=== PATIENT | male | born 1960 | race Caucasian/White ===

== ENCOUNTER 2021-08-27 01:34 | Day surgery (SDC) | payer OTHER, SELFPAY ==
[2021-08-15 15:43] VITALS: BMI 28.8
--- NOTE | 2021-08-24 13:13 | PM.HPGS ---
History of Present Illness History of Present Illness Consent: Risks, benefits, and alternatives have been discussed and questions answered. Patient agrees to proceed with procedure. Chief complaint: neoplasm screening, hx of colon polyps Narrative: Omer Pradhan is a 61 year old male Referred for colon cancer screening. He has had polyps removed in the past Review of Systems Review of Systems: All systems reviewed & are unremarkable except as noted in HPI and below PMFSH Past Medical History Medical History Hyperlipidemia Overweight Surgical History Surgical History H/O colonoscopy Social History Social History Smoking packs per day: 1 Smoking cigarettes per day: 20.0 Years smoked: 30 Smoking pack-years: 30.00 Smoking status: Current every day smoker Tobacco type: cigarettes Alcohol intake: current Alcohol use details: 1-2 beers/day Substance use: never Substance use type: does not use Living arrangements: with family Spiritual care concerns: No Meds Home Medications and Allergies Home Medications Medication Instructions Recorded Confirmed Type Adult Low Dose Aspirin 81 mg PO DAILY 08/15/21 08/15/21 History rosuvastatin 20 mg PO DAILY 08/15/21 08/15/21 History testosterone cypionate 200 mg IM WEEKLY 08/15/21 08/15/21 History Allergies Allergy/AdvReac Type Severity Reaction Status Date / Time No Known Allergies Allergy Verified 08/27/21 08:19 Exam Resp: Auscultation: clear to auscultation bilaterally Cardio: Rate: regular rate Rhythm: regular rhythm GI: GI Palp: Yes Soft to palpation and No Tenderness to palpation present (GI) Assessment and Plan Assessment and plan (1) Colon cancer screening: Code(s): Z12.11 - Encounter for screening for malignant neoplasm of colon Status: Acute Assessment and Plan: Colonoscopy with possible biopsy or polypectomy or cautery or injection of substances.
[2021-08-27 08:20] VITALS: BP 118/74; PULSE 87; RESP 20; TEMP 36.4; O2SAT 96; BMI 29.0
--- NOTE | 2021-08-27 08:29 | P.PNAN_ITS ---
Anes - Initial Pre Proc Eval Procedure: Operation Date: 08/27/21 09:30 Proposed Procedures p Screening Colonoscopy - Markus Aaron MD Date/Time: 08/27/21 08:29 Surgeon: Markus Aaron MD Pre Op Diagnosis: neoplasm screening, hx of colon polyps Patient Data Age: 61 Gender: M Height: 1.73 m Weight: 86.8 kg Last Vital Signs Temp 36.4 C 08/27/21 08:20 Pulse 87 08/27/21 08:20 Resp 20 08/27/21 08:20 BP 118/74 08/27/21 08:20 Pulse Ox 96 08/27/21 08:20 Allergies Allergy/AdvReac Type Severity Reaction Status Date / Time No Known Allergies Allergy Verified 08/27/21 08:19 Home Medications Medication Instructions Recorded Confirmed Type Adult Low Dose Aspirin 81 mg PO DAILY 08/15/21 08/15/21 History rosuvastatin 20 mg PO DAILY 08/15/21 08/15/21 History testosterone cypionate 200 mg IM WEEKLY 08/15/21 08/15/21 History Patient hx anesthesia problems: none Family hx anesthesia problems: none Results Review: All pre-operative results and documents have been reviewed as part of the pre-operative evaluation. [facility]LY [facility] Past Medical History Medical History (Updated 08/27/21 @ 08:29 by Raymond Frederick MD) Hyperlipidemia Overweight Surgical History Surgical History H/O colonoscopy Social History Social History Smoking packs per day: 1 Smoking cigarettes per day: 20.0 Years smoked: 30 Smoking pack-years: 30.00 Smoking status: Current every day smoker Tobacco type: cigarettes Alcohol intake: current Alcohol use details: 1-2 beers/day Substance use: never Substance use type: does not use Living arrangements: with family Spiritual care concerns: No Anes - Eval Final PreProcedure Day of Procedure 08/27/21 08:29 Patient weight: overweight Heart: regular rate and rhythm Lungs: clear to auscultation Airway: Mallampati scale class II Neurological: alert and oriented Last oral intake: >/= 8 hours ASA classification: II Emergent: no Anesthetic plan: proceed Anesthesia type and monitoring: general GIVS and standard monitoring Results Review: All pre-operative results and documents have been reviewed as part of the pre-operative evaluation. Informed Consent: The patient's anesthetic plan and its attendant risks and benefits were discussed with the patient/family/POA. Questions were solicited and answers provided to the satisfaction of the patient/family/POA.
[2021-08-27] MEDS: LACTATED RINGERS 1,000 ML 150 ML IV CONT (08:33)
[2021-08-27 09:04] VITALS: BP 95/55; PULSE 84; RESP 19; O2SAT 97
--- NOTE | 2021-08-27 09:05 | SUR.OPER ---
Dr. Aaron aware that second transverse colon polyp not retrieved.
[2021-08-27 09:14] VITALS: BP 114/80; PULSE 79; RESP 21; O2SAT 98
[2021-08-27 09:24] VITALS: BP 148/79; PULSE 80; RESP 21; O2SAT 98
== END 2021-08-27 09:38 | disposition home or self-care (01) ==
PROVIDERS: PCP Internal Medicine; Visit Provider Internal Medicine Gastroenterology
PROC: 0DJD8ZZ Inspection of Lower Intestinal Tract, Via Natural or Artificial Opening Endoscopic (ICD-10-PCS; CPT 45378; principal; 2021-08-27 09:30)
DX: Z12.11 Encounter for screening for malignant neoplasm of colon (principal); K57.30 Diverticulosis of large intestine without perforation or abscess without bleeding; K63.5 Polyp of colon; E78.5 Hyperlipidemia, unspecified; Z79.82 Long term (current) use of aspirin; F17.210 Nicotine dependence, cigarettes, uncomplicated
CPT/HCPCS: 45381; 45385; 88305; J2704; J7120

== ENCOUNTER 2024-12-13 10:29 | Outpatient (CLI) | payer OTHER, SELFPAY ==
--- NOTE | ~2024-12-13 | XR_ITS ---
EXAM: XR hand LT min 3V, XR hand RT min 3V DATE: 12/13/2024 11:00 HISTORY: G56.01 - Carpal tunnel syndrome, right upper limb . COMPARISON: None available. FINDINGS: Normal mineralization. No fracture or dislocation. No lytic or blastic lesion. Scattered c hanges typical of osteoarthritis, moderate at the left CMC joint, bilateral lunate and capitate artic ulations, bilateral second and third MCP joints, and the right radial carpal joint, with more mild de grees of osteoarthritis in multiple additional joints. Old left ulnar styloid fracture. Marked subcho ndral cyst formation in the bilateral carpal bones. Irregularity of the right scaphoid, with proximal sclerosis, and scapholunate widening. No erosion or periosteal change. Soft tissues within normal li mits. 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 Bilateral changes as can be seen with SLAC wrist, more pronounced on the right. 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 Reviewed, dictated and finalized at location K. 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 Bilateral changes as can be seen with SLAC wrist, more pronounced on the right. 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
--- OUTSIDE RECORDS SUMMARY | 2024-12-13 11:05 | XMS_ITS | CONTINUITY OF CARE DOCUMENT ---
Author Name lidia ricardoshirlene Address Unknown Organization [facility] Address [address] [place] [address] Phone [phone] Care Team Providers Care Blueprint Reader Name Role Phone Santana Amin MD Unavailable [phone] GEORGE GREEN MD Unavailable GEORGE GREEN MD Unavailable [phone] PROBLEMS Condition Status Date Provider Notes Tobacco abuse active Santana Amin MD Hyperlipidemia active Santana Amin MD Chest pain-type to be determined active Santana Amin MD Cardiology examination active Santana Tapia ENCOUNTERS Date Type Provider Location Encounter Diag nosis 3 - 3 In-person encounter Office Visit Santana Amin MD [facility] Office 6 - 6 In-person encounter Office Visit Santana Amin MD [facility] Cardiology examinationChest pain-type to be determinedHyperlipidemiaTobacco abuse VITAL SIGNS Date Observation Value Provider Body Mass Index (Ratio) 28.65 kg/m2 Hugo Guillen weight E&M 194 [lb_av] Radha [place]ana blood pressure, diastolic 69 mm[Hg] Mendez Boothe blood pressure, systolic 117 mm[Hg] Ingris Boothe blood pressure, cuff size regular Br bravo Boothe pulse rate 76 /min Radha [place] oxygen saturation, oximetry 96 % Radha Boothe height E&M 69 [in_i] Radha [place] Body Mass Index (Ratio) 28.35 kg/m2 Santana Amin MD blood pressure, diastolic 73 mm[Hg] Li nkLogic blood pressure, systolic 115 mm[Hg] Marisol kLogic blood pressure, diastolic 73 mm[Hg] Gregorio rubio Ruple blood pressure, systolic 115 mm[Hg] Anamaria la Ruple pulse rate 72 /min Karol Rusteffanie oxygen saturation, oximetry 96 % Karol Rusteffanie blood pressure, cuff size regular Gregorio ylterri Ruple weight E&M 192 [lb_av] Karol Ruple height E&M 69 [in_i] Karol Rusteffanie HISTORY OF MEDICATION USE Medication Status Instructions Dates Provider Indications Com ments rosuvastatin 20 mg tablet active Karol Rusteffanie INSURANCE PROVIDERS Payer name Policy type / Coverage type Rupert red constitution party ID [employer] insurance [facility] [id number] ADVANCE DIRECTIVES Name Date DISCUSSED - NO DECISION MADE TREATMENT PLAN Date Name Performer Cardiology Santana Amin MD Cardiology: H is updated medication list for this problem includes: Rosuvastatin 20 Mg Tablet (Rosuvastatin) Santana Amin MD Cardiology: H ad negative cardiac workup. Sx are related to eating spicy food. Recommended he see a GI specialist Santana Amin MD Cardiology:Cessation reviewed. Solange Amin MD Cardiology:I recomme nd pt undergo stress cardiolite given recent CP episodes and significant hx of HLD and smoking as risk factors for heart disease. Santana Amin MD Cardiology:Will requ est lab work from PCP. His updated medication list for this problem includes: Rosuvastatin 20 Mg Tablet (Rosuvastatin) Santana Amin MD Cardiology:check echo and stress test to evaluatio his CP Santana Amin MD Date Name Stress Exercise Card iolite Complete Echo HISTORY OF PROCEDURES Procedure Date Procedure Name Provider Procedure Notes S tatus EKG Santana Amin MD completed
== END 2024-12-13 10:30 | disposition home or self-care (01) ==
PROVIDERS: PCP Internal Medicine; Visit Provider Plastic Surgery
DX: G56.01 Carpal tunnel syndrome, right upper limb (principal)
CPT/HCPCS: 73130

== ENCOUNTER 2025-01-26 12:28 | Outpatient (CLI) | payer OTHER, SELFPAY ==
--- NOTE | 2025-01-26 14:00 | NEURO_ITS ---
Impression: # Complains of right hand numbness. ? # Moderate right Carpal Tunnel Syndrome. ? # No ulnar neuropathy. ? # Normal needle/EMG exam. Nerve Conduction Studies ?Stim Site NR Peak (ms) P-T Amp (?V) Site1 Site2 Delta-P (ms) Dist (cm) Jase (m/s) Right Median Anti Sensory (2-3nd Digit) Wrist ? 4.5 19.3 Wrist 2-3nd Digit 4.5 14.0 31 Wrist ? 5.4 42.6 Wrist 2-3nd Digit 4.5 14.0 31 Right Radial Anti Sensory (Base 1st Digit) Wrist ? 1.9 16.7 Wrist Base 1st Digit 1.9 0.0 Right Ulnar Anti Sensory (5th Digit) Wrist ? 2.3 1.6 Wrist 5th Digit 2.3 14.0 61 ?Stim Site NR Onset (ms) O-P Amp (mV) Site1 Site2 Delta-0 (ms) Dist (cm) Jase (m/s) Right Median Motor (Abd Poll Brev) Wrist ? 5.5 1.2 Elbow Wrist 2.6 27.0 104 Elbow ? 8.1 5.2 Right Ulnar Motor (Abd Dig Minimi) Wrist ? 1.9 6.0 A Elbow Wrist 5.0 28.0 56 A Elbow ? 6.9 5.4 B Elbow Wrist 3.5 19.0 54 B Elbow ? 5.4 2.1 Electromyography ?Side Muscle Nerve Root Ins Act Fibs Amp Dur Recrt Comment Right 1stDorInt Ulnar C8-T1 Nml Nml Nml Nml Nml Right Ext Indicis Radial (Post Int) C7-8 Nml Nml Nml Nml Nml Right Ext Digitorum Radial (Post Int) C7-8 Nml Nml Nml Nml Nml Right BrachioRad Radial C5-6 Nml Nml Nml Nml Nml Right PronatorTeres Median C6-7 Nml Nml Nml Nml Nml Right Abd Poll Brev Median C8-T1 Nml Nml Nml Nml Nml Right ABD Dig Min Ulnar C8-T1 Nml Nml Nml Nml Nml Right FlexPolLong Median (Ant Int) C7-8 Nml Nml Nml Nml Nml Right Abd Poll Long Radial (Post Int) C7-8 Nml Nml Nml Nml Nml
== END 2025-01-26 12:29 | disposition home or self-care (01) ==
PROVIDERS: PCP Internal Medicine; Visit Provider Plastic Surgery
DX: G56.01 Carpal tunnel syndrome, right upper limb (principal)
CPT/HCPCS: 95886; 95909

== ENCOUNTER 2025-03-04 02:37 | Day surgery (SDC) | payer OTHER, SELFPAY ==
[2025-02-18 15:54] VITALS: BMI 28.8
--- OUTSIDE RECORDS SUMMARY | 2025-03-04 02:47 | XMS_ITS | Patient Health Record ---
Author Organization [facility] Address [address] [facility] [address] [facility] [address] [place] [address] Support Name Relationship Address Phone JEFF KENT Guarantor Unknown [phone] Reason For Referral No Information Plan Of Treatment No Information
--- OUTSIDE RECORDS SUMMARY | 2025-03-04 02:47 | XMS_ITS | Continuity of Care Document ---
Author Organization [facility] Address [address] [place] [address] [address] [place] [address] Phone Care Team Providers Care Auto Transmission Mechanic Name Role Phone Pacheco OD, Wes Unavailable Unavailable Advance Directives Directive Yes / No Effective Date File Name No Information Encounters Encounter Description Practice Location Reason(s) For Visit Diagnoses Date Provider Providers Copied on Encounter [facility], [address], [place], [place], [address], [place] tel:[phone] [facility] [place] No Information November-2 9-200 2 Pacheco OD Wes. [address] [facility] [place] , [address], [place], [address], [place]. tel:[phone] Family History Family Member Type Diagnosis Age At Onset No Information Payers Payer name Insurance type Covered green party ID Authoriza tion(s) Precoat [facility] [id number] Social History Type Description Quantity Date Captured [...]
[2025-03-04 07:40] VITALS: BP 105/71; PULSE 68; RESP 16; TEMP 36.3; O2SAT 97; BMI 29.8
[2025-03-04] MEDS: LACTATED RINGERS 1,000 ML 150 ML IV CONT (07:57)
--- NOTE | 2025-03-04 08:03 | WPDANESEPPF ---
Anes - Initial Pre Proc Eval Procedure: Operation Date: 03/04/25 09:00 Proposed Procedures p Screening Colonoscopy - Jovany Lee MD Date/Time: 03/04/25 08:03 Surgeon: Jovany Lee MD Pre Op Diagnosis: Neoplasm screening Patient Data Age: 64 Gender: M Height: 1.73 m Weight: 89.1 kg Last Vital Signs Temp 36.3 C L 03/04/25 07:40 Pulse 68 03/04/25 07:40 Resp 16 03/04/25 07:40 BP 105/71 03/04/25 07:40 Pulse Ox 97 03/04/25 07:40 O2 Del Method Room Air 03/04/25 07:40 Allergies Allergy/AdvReac Type Severity Reaction Status Date / Time No Known Allergies Allergy Verified 03/04/25 07:48 Home Medications ?Medication ?Instructions ?Recorded ?Confirmed ?Type Adult Low Dose Aspirin 81 mg PO DAILY 08/15/21 03/04/25 History rosuvastatin 20 mg tablet 20 mg PO DAILY 08/15/21 03/04/25 History testosterone cypionate 200 mg/mL 200 mg IM MONTHLY 08/15/21 03/04/25 History intramuscular oil tadalafil 20 mg tablet 20 mg PO PRN PRN sexual activity 02/18/25 02/18/25 History Patient hx anesthesia problems: none Family hx anesthesia problems: none Results Review: All pre-operative results and documents have been reviewed as part of the pre-operative evaluation. [facility] Past Medical History Medical History Hyperlipidemia Overweight Surgical History Surgical History H/O colonoscopy Social History Social History Smoking packs per day: 1 Smoking cigarettes per day: 20.0 Years smoked: 30 Smoking pack-years: 30.00 Smoking status: Current every day smoker Tobacco type: cigarettes Alcohol intake: current Alcohol use details: 1-2 beers/day Substance use: never Substance use type: does not use Living arrangements: with family Spiritual care concerns: No Anes - Eval Final PreProcedure Day of Procedure 03/04/25 08:03 Patient weight: overweight Heart: regular rate and rhythm Lungs: clear to auscultation Airway: Mallampati scale class II Neurological: alert and oriented Last oral intake: >/= 8 hours ASA classification: II Emergent: no Anesthetic plan: proceed Anesthesia type and monitoring: general GIVS and standard monitoring Results Review: All pre-operative results and documents have been reviewed as part of the pre-operative evaluation. Informed Consent: The patient's anesthetic plan and its attendant risks and benefits were discussed with the patient/family/POA. Questions were solicited and answers provided to the satisfaction of the patient/family/POA.
--- NOTE | 2025-03-04 08:16 | PM.IMHP ---
H&P: HPI History of Present Illness Date/Time: 03/04/25 08:16 Chief Complaint: History of colon polyps Narrative: The patient has a history of colonic polyps, the last colonoscopy was approximately 6 years ago. Review of Systems Review of Systems: All systems reviewed & are unremarkable except as noted in HPI and below PMFSH Past Medical History Medical History Hyperlipidemia Overweight Surgical History Surgical History H/O colonoscopy Social History Social History Smoking packs per day: 1 Smoking cigarettes per day: 20.0 Years smoked: 30 Smoking pack-years: 30.00 Smoking status: Current every day smoker Tobacco type: cigarettes Alcohol intake: current Alcohol use details: 1-2 beers/day Substance use: never Substance use type: does not use Living arrangements: with family Spiritual care concerns: No Meds Home Medications and Allergies Home Medications ?Medication ?Instructions ?Recorded ?Confirmed ?Type Adult Low Dose Aspirin 81 mg PO DAILY 08/15/21 03/04/25 History rosuvastatin 20 mg tablet 20 mg PO DAILY 08/15/21 03/04/25 History testosterone cypionate 200 mg/mL 200 mg IM MONTHLY 08/15/21 03/04/25 History intramuscular oil tadalafil 20 mg tablet 20 mg PO PRN PRN sexual activity 02/18/25 02/18/25 History Allergies Allergy/AdvReac Type Severity Reaction Status Date / Time No Known Allergies Allergy Verified 03/04/25 07:48 Vital Signs Vital Signs - 24 hr 03/04/25 07:40 Temperature 97.3 F L Pulse Rate 68 Respiratory Rate 16 Blood Pressure 105/71 Pulse Oximetry 97 Oxygen Delivery Room Air Exam Const: General: cooperative and healthy appearing Resp: Effort & Inspection: normal respiratory effort and able to speak in complete sentences Auscultation: clear to auscultation bilaterally Cardio: Rate: regular rate Rhythm: regular rhythm GI: Inspection: normal to inspection GI Palp: No No hepatosplenomegaly present Auscultation: normal bowel sounds Rectal Exam: deferred Skin: General skin exam: normal color Psych: Appearance: grossly normal Mental Status: mental status grossly normal Assessment and Plan Assessment and plan (1) History of colonic polyps: Code(s): Z86.0100 - Personal history of colon polyps, unspecified Status: Acute Assessment and Plan: The patient is deemed a good candidate for the procedure. Consent signed. Will proceed.
[2025-03-04 09:05] VITALS: BP 84/43; PULSE 70; RESP 14; O2SAT 94
--- NOTE | 2025-03-04 09:05 | S_PTH ---
PATIENT: Omer Pradhan LOC: TEZ U#:[id number] AGE/SX: 64/M ROOM: RE03/04/[address]: Jovany Lee MD : 1960 BED: DIS: 03/04/2025 SPEC #: [id number] RECD: 03/04/25 10:23 STATUS: RADHA REGregg #: [id number] BRANT: 03/04/25 09:[address]: Jovany Lee DEPT: [facility] Surgical RECD BY: Abbi Rudd ENTERED: 03/04/25 10:24 SP TYPE: Surgical OTHR DR: Tray KeitaMD Tissues: A - Colon Polypectomy B - Colon Polypectomy Procedures: Hematoxylin and Eosin Stain Gross and Microscopic Level 4
[2025-03-04 09:15] VITALS: BP 87/46; PULSE 63; RESP 17; O2SAT 96
[2025-03-04 09:25] VITALS: BP 90/60; PULSE 60; RESP 17; O2SAT 97
== END 2025-03-04 09:40 | disposition home or self-care (01) ==
PROVIDERS: PCP Internal Medicine; Referring Provider Internal Medicine Gastroenterology; Visit Provider Internal Medicine Gastroenterology
PROC: 0DJD8ZZ Inspection of Lower Intestinal Tract, Via Natural or Artificial Opening Endoscopic (ICD-10-PCS; CPT 45378; principal; 2025-03-04 09:00)
DX: Z12.11 Encounter for screening for malignant neoplasm of colon (principal); K63.5 Polyp of colon; K64.8 Other hemorrhoids; K57.30 Diverticulosis of large intestine without perforation or abscess without bleeding; E78.5 Hyperlipidemia, unspecified; F17.210 Nicotine dependence, cigarettes, uncomplicated
CPT/HCPCS: 45385; 88305; J2704; J7120

== ENCOUNTER 2025-04-28 07:37 | Day surgery (SDC) | payer OTHER, SELFPAY ==
--- OUTSIDE RECORDS SUMMARY | 2001-12-23 04:00 | XMS_ITS | Continuity of Care Document ---
Author Organization [facility] Address [address] [place] [address] [address] [place] [address] Phone Care Team Providers Care Bar Machine Operator Name Role Phone Pacheco OD, Wes Unavailable Unavailable Advance Directives Directive Yes / No Effective Date File Name No Information Encounters Encounter Description Practice Location Reason(s) For Visit Diagnoses Date Provider Providers Copied on Encounter [facility], [address], [place], [place], [id number], [place] tel:[phone] [facility] [place] No Information November- 9-200 2 Pacheco OD Wes. [address] [facility] [place] , [address], [place], [address], [place]. tel:[phone] Family History Family Member Type Diagnosis Age At Onset No Information Payers Payer name Insurance type Covered republican ID Authoriza tienrique(s) Precoat [facility] [id number] Social History Type Description Quantity Date Captured Comments Sex Male Smoking Status No Information Chief Complaint And Reason For Visit No Information Reason For Referral Reason For Referral No Information History Of Present Illness Encounter Date Complaint History Of Prese nt Illness No Information Functional Status Date Functional Assessmen t No Information Instructions Date Instruction Additional Infor mation No Information Assessments Type Assessment Date No Information Patient Care Teams Name Effective Dates (start - stop) Status Members No Information
[2025-04-19 11:45] VITALS: BMI 29.9
--- NOTE | 2025-04-28 06:54 | PM.HPGS ---
History of Present Illness History of Present Illness Chief complaint: RT Carpal Tunnel Syndrome,Ganglion Cyst,Wrist Pain Narrative: Patient seen and examined in pre-operative holding area. No interval change in medical history or symptoms. Patient recalls previous discussion of benefits and alternatives to procedure. Continues to desire to proceed with right endoscopic possible open carpal tunnel release, right dorsal wrist mass excision and right posterior interosseous nerve neurectomy. Reviewed procedure, post-op expectations and risks including but not limited to bleeding, infection, injury to tendon/nerve/vessel, decreased hand function, stiffness, RSD, no change or worsening of symptoms. I discussed the possible use of assistants and their participation in the case. Patient stated understanding and signed the consent form wishing to proceed. Review of Systems Review of Systems: All systems reviewed & are unremarkable except as noted in HPI and below PMFSH Past Medical History Medical History Hyperlipidemia Overweight Surgical History Surgical History H/O colonoscopy Social History Social History Smoking packs per day: 1 Smoking cigarettes per day: 20.0 Years smoked: 30 Smoking pack-years: 30.00 Smoking status: Current every day smoker Tobacco type: cigarettes Second hand tobacco smoke exposure: Yes Alcohol intake: current Alcohol use details: 1-2 beers/day Substance use: never Substance use type: does not use Living arrangements: with family Spiritual care concerns: No Meds Home Medications and Allergies Home Medications ?Medication ?Instructions ?Recorded ?Confirmed ?Type Adult Low Dose Aspirin 81 mg PO DAILY 08/15/21 04/28/25 History rosuvastatin 20 mg tablet 20 mg PO DAILY 08/15/21 04/28/25 History testosterone cypionate 200 mg/mL 200 mg IM MONTHLY 08/15/21 04/28/25 History intramuscular oil tadalafil 20 mg tablet 20 mg PO PRN PRN sexual activity 02/18/25 04/28/25 History tramadol 50 mg tablet 50 mg PO Q6H PRN pain #12 tabs 04/28/25 Rx Allergies Allergy/AdvReac Type Severity Reaction Status Date / Time No Known Allergies Allergy Verified 04/28/25 07:56 Exam Narrative: unchanged Assessment and Plan Assessment and plan (1) Carpal tunnel syndrome of right wrist: Code(s): G56.01 - Carpal tunnel syndrome, right upper limb Status: Acute Assessment and Plan: cont as above (2) Right wrist pain: Code(s): M25.531 - Pain in right wrist Status: Acute (3) Ganglion, tendon sheath: Code(s): M67.40 - Ganglion, unspecified site Status: Acute
--- NOTE | 2025-04-28 06:55 | P.OP_ITS ---
Procedure Note - Detailed Date of Procedure 04/28/25 Pre-op Diagnosis RT Carpal Tunnel Syndrome,dorsal wrist mass, right Wrist Pain Post-op Diagnosis Same Procedure Performed right ectr, right dorsal wrist extensor tenosynovectomy and right pin neurectomy Surgeon Tangela Quijano MD Ice Delivery Driver Dayanna Blanco PA-C Anesthesia MAC Description of Procedure INFORMED CONSENT: The patient was seen and examined and marked in the pre-op area.? The patient signed the consent form. PROCEDURE IN DETAIL:The patient taken back to OR on the stretcher in supine position. Time out performed with anesthesia, surgeon and staff agreeing on patient's name site and surgery to be performed SCDs were placed on the lower extremities and inflated. A tourniquet was placed on {right} upper extremity and antibiotics given IV After anesthesia administered sedation I injected {10}cc 1%lido with epi and 0.5% marcaine plain at the operative sites The?{right upper extremity}?was prepped and draped in sterile fashion the??{right upper extremity} was? exsanguinated with Esmarch bandage proximal to mass and tourniquet inflated to 250mmHg I made a transverse incision in the {right} volar distal wrist crease through skin and dermis with 15 blade scalpel.? Littler scissors spread down to antebrachial fascia. A small incision was made in antebrachial fascia allowing access to Carpal tunnel. I proceeded with sequential dilation staying in line with the ring finger and hugging the hook of the hamate.? I then used the synovial elevator to free any adhesions from the underside of the transverse carpal ligament. Next I was able to insert the Microaire endoscopic carpal tunnel device with direct visualization of the transverse fibers on the monitor and proceeded with complete segmental retrograde release of the ligament in its entirety.? I irrigated with normal saline and closed with 4-0 monocryl for dermis and subcuticular closure. Next I took my attention to the dorsum of the right wrist where I made a hockey style incision over the 4th extensor compartment proximally going radially across the wrist flexion crease through skin and dermis with 15 blade scalpel. Littler scissors were used to spread through subcutaneous tissue and elevate these skin flaps. The dorsal branch of the radial sensory nerve was not identified in the plane of dissection and was likely capped radially. An incision was made in the extensor retinaculum allowing exposure to the 3rd and 4th extensor compartments. Here I identified notable synovitis coming off of the tendons of the 4th extensor compartment and extensor pollicis longus. I proceeded with synovectomy of both these compartments. This was done with 15 blade scalpel and bipolar cautery. Next I proceeded with retracting the 4th extensor compartment tendons ulnarly and identified the posterior interosseous nerve running along the radial aspect of the 4th extensor compartment. 1.5 cm of this nerve was transected with traction and bipolar cautery and resected over the dorsal wrist capsule. I irrigated with normal saline. 3-0 Vicryl was used to reinforce the dorsal wrist capsule at site of PI in resection. The extensor retinaculum was repaired with 3-0 Vicryl. 3-0 Vicryl was used for dermis. 4-0 Monocryl was used for subcuticular closure. There was no impingement on the finger range of motion noted. A dressing of Dermabond, 4x4, kristy, and a volar splint was applied for patient safety, security, and comfort and secured with an félix bandage after the tourniquet was let down noting the hand was warm and well perfused. The patient was then awaken from anesthesia and transferred to the recovery room in stable condition.? Complications - none EBL- 0cc Disposition - home in stable condition Dayanna Blanco PA-C was essential for positioning, retraction, closure and dressing placement [facility] Billing Surgery - Charge Forward: Surgery Billing ([id number], same for dayanna taveras )
--- OUTSIDE RECORDS SUMMARY | 2025-04-28 07:52 | XMS_ITS | Clinical Summary ---
Author Organization [facility] Address [address] [place] [address] Care Team Providers Care Documentation Nurse Name Role Phone Tray Keita MD Primary Care Provider [phone] Source Comments [facility],non-owned Affiliates and Associated Physician Practices is amultiple site organization consisting of ambulatory clinics and hospital sitesin [place], [place], [place] and [place]. This disclosure is being madepursuant to the Care Everywhere program and may not contain all information available regarding this patient. 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[employer] Gender Identity Not on file Sexual Orientation Not on file Plan of Treatment Upcoming Encounters Date Type Department Care Team (Late st Contact Info) Description 05/03/2025 10:00 AM CDT Office Visit [facility] [address] [facility], [address] [address] Anju Griffin, PAAjC [address] [address] Health Maintenance Due Date Last Done Comments COLOGUARD (AGES 45-75) - COL ON CA SCREENING 1960 COLON MONITORING 1960 COLONOSCOPY - COLON CA SCREENING 1960 CT COLONOGRAPHY - COLON CA SCREENING 1960 Colorectal Cancer Screening 1960 FIT - COLON CA SCREENING 1960 FLEX SIG - COLON CA SCREENING 1960 LIPID TESTING 1960 HIV SCREENING 1975 HEPATITIS C SCREENING 03/30/1978 DTAP/TDAP/TD VACCINES (1 - Tdap) 1979 PNEUMOCOCCAL VACCINE 50+ (1 of 1 - PCV) 2010 ZOSTER VACCINE (1 of 2) 2010 DEPRESSION SCREENING 07/28/2024 COVID-19 VACCINE (1 - 2023-2 5 season) 2025 INFLUENZA VACCINE (#1) 2025 Respiratory Syncytial Virus (RSV) Vaccine Pt: or over 60 yrs (1 - 1-dose 75+ series) 2035 HEPATITIS B VACCINE Aged Out No longe r eligible based on patient's age to complete this topic HIB VACCINE Aged Out No longer eligi ble based on patient's age to complete this topic HPV VACCINE Aged Out No longer eligi ble based on patient's age to complete this topic MENINGOCOCCAL (Group B) VACC INE SHARED DECISION-MAKING Aged Out No longer eligibl e based on patient's age to complete this topic MENINGOCOCCAL GROUPS A/C/Y/W VACCINE Aged Out No longer eligible b ased on patient's age to complete this topic Insurance [facility] SELF PAY NO INSURANCE Member Subscriber Plan / Payer (Ef fective for All Dates) Name:Omer Pradhan Member ID:Not on file Relation to Subscriber:Not on file Name:OMER PRADHAN Subscriber ID:Not on file (Home) Address: [address] [place] [id number] Payer ID:Not on file Group ID:Not on file Type:Self Pay Address: [place], [place] Care Teams Documentation Nurse Relationship Specialty Start Date End Date Tray Keita MD [address] [place] [address] [address] [place] [address] PCP - General 08/29/21
--- OUTSIDE RECORDS SUMMARY | 2025-04-28 07:52 | XMS_ITS | Patient Health Record ---
Author Organization [facility] Address [address] [facility] [address] [place] [address] Support Name Relationship Address Phone JEFF KENT Guarantor Unknown [phone] Reason For Referral No Information Plan Of Treatment No Information
[2025-04-28 08:00] VITALS: BMI 30.1
[2025-04-28 08:07] VITALS: BP 112/74; PULSE 61; RESP 18; TEMP 36.6; O2SAT 99
--- NOTE | 2025-04-28 08:19 | WPDANESEPPF ---
Anes - Initial Pre Proc Eval Procedure: Operation Date: 04/28/25 09:15 Proposed Procedures p Right Endoscopic Carpal Tunnel Release, Possible Open Carpal Tunnel Release - Tangela Quijano MD s Excision Ganglion Cyst Right Dorsal Wrist vs. Tenosynovectomy - Tangela Quijano MD s Posterior Interosseous Nerve Neurectomy Right Wrist - Tangela Quijano MD Date/Time: 04/28/25 08:19 Surgeon: Tangela Quijano MD Pre Op Diagnosis: RT Carpal Tunnel Syndrome,Ganglion Cyst,Wrist Pain Patient Data Age: 65 Gender: M Height: 1.73 m Weight: 89.8 kg Last Vital Signs Temp 97.9 F 04/28/25 08:07 Pulse 61 04/28/25 08:07 Resp 18 04/28/25 08:07 BP 112/74 04/28/25 08:07 Pulse Ox 99 04/28/25 08:07 O2 Del Method Room Air 04/28/25 08:07 Allergies Allergy/AdvReac Type Severity Reaction Status Date / Time No Known Allergies Allergy Verified 04/28/25 07:56 Home Medications ?Medication ?Instructions ?Recorded ?Confirmed ?Type Adult Low Dose Aspirin 81 mg PO DAILY 08/15/21 04/28/25 History rosuvastatin 20 mg tablet 20 mg PO DAILY 08/15/21 04/28/25 History testosterone cypionate 200 mg/mL 200 mg IM MONTHLY 08/15/21 04/28/25 History intramuscular oil tadalafil 20 mg tablet 20 mg PO PRN PRN sexual activity 02/18/25 04/28/25 History tramadol 50 mg tablet 50 mg PO Q6H PRN pain #12 tabs 04/28/25 Rx Patient hx anesthesia problems: none Family hx anesthesia problems: none Results Review: All pre-operative results and documents have been reviewed as part of the pre-operative evaluation. [facility] Past Medical History Medical History Hyperlipidemia Overweight Surgical History Surgical History H/O colonoscopy Social History Social History Smoking packs per day: 1 Smoking cigarettes per day: 20.0 Years smoked: 30 Smoking pack-years: 30.00 Smoking status: Current every day smoker Tobacco type: cigarettes Second hand tobacco smoke exposure: Yes Alcohol intake: current Alcohol use details: 1-2 beers/day Substance use: never Substance use type: does not use Living arrangements: with family Spiritual care concerns: No Anes - Eval Final PreProcedure Day of Procedure 04/28/25 08:19 Heart: regular rate and rhythm Lungs: clear to auscultation Airway: Mallampati scale class IV Neurological: alert and oriented Last oral intake: >/= 8 hours ASA classification: II Anesthetic plan: proceed Anesthesia type and monitoring: monitored anesthesia care Results Review: All pre-operative results and documents have been reviewed as part of the pre-operative evaluation. Informed Consent: The patient's anesthetic plan and its attendant risks and benefits were discussed with the patient/family/POA. Questions were solicited and answers provided to the satisfaction of the patient/family/POA.
[2025-04-28] MEDS: LACTATED RINGERS 1,000 ML 30 ML IV CONT (08:28)
[2025-04-28] MEDS: ACETAMINOPHEN 500 MG TABLET 1000 MG PO (08:28)
[2025-04-28] MEDS: ceFAZolin SODIUM 2 GM/20 ML SW SYRINGE IV PUSH (08:58)
--- NOTE | 2025-04-28 09:42 | WPDANESPN ---
Anes - Prog Note Post-Op Date/Time: 04/28/25 09:42 Vital Signs: Last Vital Signs Temp 97.9 F 04/28/25 08:07 Pulse 61 04/28/25 08:07 Resp 18 04/28/25 08:07 BP 112/74 04/28/25 08:07 Pulse Ox 99 04/28/25 08:07 O2 Del Method Room Air 04/28/25 08:07 Pain Score (VAS): no Patient Feedback: Patient satisfied with anesthetic care.
[2025-04-28 09:48] VITALS: BP 100/61; PULSE 70; RESP 15; O2SAT 99
[2025-04-28] MEDS: LIDO 1%/EPINEPHRINE 1:100,000 20 ML VIAL 10 ML INFILTRATE (09:48)
[2025-04-28] MEDS: BUPivacaine HCL 0.5% 10 ML AMP INFILTRATE (09:49)
[2025-04-28 09:58] VITALS: BP 90/63; PULSE 65; RESP 16; O2SAT 98
[2025-04-28 10:08] VITALS: BP 101/70; PULSE 62; RESP 16; O2SAT 97
== END 2025-04-28 10:21 | disposition home or self-care (01) ==
LOC: ASC 07:49
PROVIDERS: PCP Internal Medicine; Visit Provider Plastic Surgery
PROC: 01N54ZZ Release Median Nerve, Percutaneous Endoscopic Approach (ICD-10-PCS; CPT 29848; principal; 2025-04-28 09:15)
PROC: (CPT 29848; 2025-04-28 09:15)
PROC: (CPT 29848; 2025-04-28 09:15)
DX: G56.01 Carpal tunnel syndrome, right upper limb (principal); M67.431 Ganglion, right wrist
CPT/HCPCS: 29848; 64772; 25118 ×2

== ENCOUNTER 2025-04-28 10:44 | Outpatient (NON) | payer OTHER, SELFPAY ==
--- OUTSIDE RECORDS SUMMARY | 2001-12-23 04:00 | XMS_ITS | Continuity of Care Document ---
Author Organization [facility] Address [id number] [place] [address] [address] [place] [address] Phone Care Team Providers Care Community Dietitian Name Role Phone Pacheco OD, Wes Unavailable Unavailable Advance Directives Directive Yes / No Effective Date File Name No Information Encounters Encounter Description Practice Location Reason(s) For Visit Diagnoses Date Provider Providers Copied on Encounter [facility], [address], [place], [place], [address], [place] tel:[phone] [facility] [place] No Information November- 9-200 2 Pacheco OD Wes. [address] [facility] [place] , [address], [place], [address], [place]. tel:[phone] Family History Family Member Type Diagnosis Age At Onset No Information Payers Payer name Insurance type Covered republican ID Authoriza tion(s) Precoat [facility] [id number] Social History Type Description Quantity Date Captured [...]
--- NOTE | 2025-04-28 | S_PTH ---
PATIENT: Omer Pradhan LOC: ANHLAB #:[id number] AGE/SX: 65/M ROOM: RE04/28/[address]: Tangela Quijano MD : 1960 BED: DIS: 04/28/2025 SPEC #: [id number] RECD: 04/29/25 11:00 STATUS: RADHA REGregg #: [id number] BRANT: 04/28/25 00:[address]: Tangela Quijano DEPT: [facility] Surgical RECD BY: Abbi Rudd ENTERED: 04/29/25 11:03 SP TYPE: Surgical OTHR DR: Tray Keita, Tissues: A - Cyst B - Soft Tissue Procedures: Hematoxylin and Eosin Stain Gross and Microscopic Level 3 Gross and Microscopic Level 4
--- OUTSIDE RECORDS SUMMARY | 2025-04-29 10:52 | XMS_ITS | Patient Health Record ---
Author Organization [facility] Address [address] [facility] [address] [place] [address] Support Name Relationship Address Phone JEFF KENT Guarantor Unknown [phone] Reason For Referral No Information Plan Of Treatment No Information
--- OUTSIDE RECORDS SUMMARY | 2025-04-29 10:52 | XMS_ITS | Clinical Summary ---
Author Organization [facility] Address [address] [place] [address] Care Team Providers Care Steward/Stewardess Bath Name Role Phone Tray Keita MD Primary Care Provider [phone] Source Comments [facility],non-owned Affiliates and Associated Physician Practices is amultiple site organization consisting of ambulatory clinics and hospital sitesin [place], [place], [place] and [place]. This disclosure is being madepursuant to the Care Everywhere program and may not contain all information available regarding this patient. Last updated 18.[facility] Social History Tobacco Use Types Packs/Day Years Used Date Smoking Tobacco: Never Assessed Sex and Gender Information Value Date Recorded Sex Assigned at Not on file Legal Sex Male 7:52 AM [employer] Gender Identity Not on file Sexual Orientation Not on file Plan of Treatment Upcoming Encounters Date Type Department Care Team (Late st Contact Info) Description 05/03/2025 10:00 AM CDT Office Visit [facility] [address] [facility], [address] [address] Anju Griffin, PAAjC [address] [address] Health Maintenance Due Date Last [...] patient's age to complete this topic Insurance [facility] SELF PAY NO INSURANCE Member Subscriber Plan / Payer (Ef fective for All Dates) Name:Omer Pradhan Member ID:Not on file Relation to Subscriber:Not on file Name:OMER PRADHAN Subscriber ID:Not on file (Home) Address: [address] [place] [id number] Payer ID:Not on file Group ID:Not on file Type:Self Pay Address: [place], [place] Care Teams Steward/Stewardess Bath Relationship Specialty Start Date End Date Tray Keita MD [address] [place] [address] [address] [place] [address] PCP - General 08/29/21
== END 2025-04-28 10:45 | disposition home or self-care (01) ==
LOC: ANHLAB 04-29 10:45
PROVIDERS: PCP Internal Medicine; Visit Provider Plastic Surgery
DX: M67.431 Ganglion, right wrist (principal)
CPT/HCPCS: 88304; 88305